=== PATIENT | male | born 2005 | race Caucasian/White ===

== ENCOUNTER → 2024-04-06 10:52 | Outpatient (REF) | payer BC, SELFPAY ==
[2024-04-06 12:14] LABS: % Basophils 0.3 % (0-2); % Eosinophils 8.4 % (0-6); % Immature Granulocytes 0.2 % (0-0.5); % Lymphocytes 30.7 % (20.5-51.1); % Monocytes 6.2 % (1.7-9.3); % Neutrophils 54.2 % (42.2-75.2); Absolute Eosinophils 0.6 10^3/uL (0-0.7); Absolute Monocytes 0.4 10^3/uL (0.1-0.6); Absolute Neutrophils 3.6 10^3/uL (1.4-6.5); Hematocrit 47.2 % (39.0-52.0); Hemoglobin 16.9 g/dL (13.0-18.0); Mean Corp Hgb Conc. 35.8 g/dL (33.0-37.0); Mean Corpuscular Hgb 30.7 pg (27.0-31.0); Mean Corpuscular Volume 85.7 fL (80.0-94.0); Mean Platelet Volume 10.4 fL (7.4-10.4); Nucleated Red Blood Cells % 0 % (-); Platelet Count 233 10^3/uL (130-400); Red Blood Cell Count 5.51 10^6/uL (4.70-6.10); Red Cell Dist. Width 12.1 % (11.5-14.5); White Blood Cell Count 6.7 10^3/uL (4.8-10.8)
[2024-04-06 12:26] LABS: ALT (SGPT) 92 U/L (0-50); AST (SGOT) 276 U/L (17-59); Albumin 5.1 g/dl (3.5-5.0); Alkaline Phosphatase 64 U/L (38-126); Blood Urea Nitrogen 11 mg/dl (9-20); Calcium 10.2 mg/dl (8.4-10.2); Carbon Dioxide 28 mmol/L (22-30); Chloride 99 mmol/L (98-107); Glucose 99 mg/dl (70-99); HDL Cholesterol 65 mg/dl; LDL Cholesterol, Calculated 55 mg/dl; Potassium 5.5 mmol/L (3.5-5.1); Sodium 139 mmol/L (135-145); Total Bilirubin 0.5 mg/dl (0.2-1.3); Total Cholesterol 131 mg/dl (50-199); Triglyceride 55 mg/dl (10-149); Very Low Density Lipoprotein 11 mg/dl (0-30); eGFR > 60.00
[2024-04-06 13:46] LABS: Glycohemoglobin (HgbA1c) 4.8 % (4.0-5.6)
[2024-04-06 13:59] LABS: Prolactin 11.4 ng/ml (3.7-17.9); TSH Reflex To Free T4 1.15 uIU/ml (0.47-4.68)
[2024-04-07 06:13] LABS: % Free Testosterone 2.1 % (1.6-2.9); Free Testosterone 112 pg/mL (47-244); Sex Hormone Binding Globulin 27 nmol/L (17-56); Total Testosterone 530 ng/dL (300-1080)
[2024-04-07 17:01] LABS: Vitamin D 1,25 Dihydroxy 40.3 pg/mL (19.9-79.3)
== END ==
LOC: WDC 10:52
PROVIDERS: ATTENDING PHYSICIAN Physician Assistant Medical
DX: N62 Hypertrophy of breast (principal); Z00.00 Encounter for general adult medical examination without abnormal findings
CPT/HCPCS: 36415; 76642; 80053; 80061; 82652; 83002; 83036; 84146; 84270; 84402; 84403; 84443; 85025

== ENCOUNTER → 2024-04-16 10:50 | Outpatient (REF) | payer BC, SELFPAY ==
[2024-04-16 15:20] LABS: ALT (SGPT) 37 U/L (0-50); AST (SGOT) 30 U/L (17-59); Alkaline Phosphatase 72 U/L (38-126); Blood Urea Nitrogen 13 mg/dl (9-20); Calcium 9.8 mg/dl (8.4-10.2); Carbon Dioxide 29 mmol/L (22-30); Chloride 98 mmol/L (98-107); GGTP 15 U/L (15-73); Glucose 92 mg/dl (70-99); Potassium 4.9 mmol/L (3.5-5.1); Sodium 139 mmol/L (135-145); Total Bilirubin 0.4 mg/dl (0.2-1.3); Total Protein 8.2 g/dl (6.3-8.2); eGFR > 60.00
[2024-04-16 18:57] LABS: Hepatitis B Surface Antigen Negative (Negative)
[2024-04-16 19:14] LABS: Hepatitis A Antibody, Total Positive (Negative); Hepatitis B Surface Antibody Negative; Hepatitis C Antibody Negative (Negative)
[2024-04-16 20:12] LABS: Hepatitis B Core Ab, IgM Negative (Negative)
[2024-04-19 00:17] LABS: F-Actin Antibody IgG 9 Units (0-19); Mitochondrial M2 Ab, IgG 9.8 Units (0.0-24.9)
== END ==
LOC: HWRAD 10:50
PROVIDERS: ATTENDING PHYSICIAN Physician Assistant Medical
DX: R74.8 Abnormal levels of other serum enzymes (principal); E87.5 Hyperkalemia
CPT/HCPCS: 36415; 76700; 80053; 82977; 86015; 86381; 86705; 86706; 86708; 86803; 87340

== ENCOUNTER → 2024-06-18 14:05 | Outpatient (REF) | payer BC, SELFPAY | LOC: RCS 14:05 | PROVIDERS: ATTENDING PHYSICIAN Surgery Plastic and Reconstructive Surgery; FAMILY PHYSICIAN Physician Assistant Medical | DX: Z01.818 Encounter for other preprocedural examination (principal) | CPT/HCPCS: 93005 ==

== ENCOUNTER 2024-08-22 06:32 | Day surgery (SDC) | payer BC, SELFPAY ==
[2024-08-22] VITALS (14 sets, daily range): BP systolic 120–144; BP diastolic 74–88; BMI 25.2
[2024-08-22] MEDS: NORMOSOL-R/PLASMALYTE-A 1000 IV (08:33)
[2024-08-22] MEDS: ADENOCARD 6 MG IV (13:35)
[2024-08-22] MEDS: ADENOCARD 12 MG IV (13:45)
[2024-08-22] MEDS: LOPRESSOR 5 MG IV (13:51)
--- NOTE | 2024-08-22 14:15 | SUR.PHASEI ---
PACU Note: Pt. arrived to PACU on monitor Sinus Tach with notable P-waves with rates in 110-120. Pt. HR progressed to the 130-150s without improvement with fluids. Pt. BP remained 130-140 systolically and afebrile (98.9 F). MD Polanco and Macario
made aware. 12-lead EKG completed. Instructed patient to Vagal down and HR did not improve. MD Polanco request to administer 6mg Adenosine. @1335 6mg Adenosine administered with 12-lead EKG on and defibrillator pads on patient. No improvement in HR
and HR remained in 150s-160s throughout administration. MD Polanco request to give 12mg. @1345 12mg of Adenosine given following same procedure (12-Lead EKG, defibrillator pads on), No change in HR and remained in rates of 140-150s. Collin request to
give 5mg Metoprolol and monitor for 30 minutes post administration. @1351 5mg Lopressor administered and pt. HR steadily came down to rates of 100-110 BPM. Pt. blood pressure and SaO2 remained stable throughout event and pt. denies any symptoms
related to procedure, anesthesia, or adenosine/ Lopressor administration. Pt. denies any pain throughout event and on arrival to PACU. @1421: Pt. HR still resting in rates of 100-110 BPM, pt. starting to endorse slight discomfort in the surgical
site at this time otherwise resting comfortably. MD Polanco okay with patient continuing on plan of discharge pending the okay from MD medley.
[2024-08-22] MEDS: DILAUDID 0.25 MG IV (14:35)
--- NOTE | 2024-08-22 15:17 | W.IMMPOSTOP ---
Surgical Immed Post Op Note
-
Primary Surgeon: ARSH Villa MD
Assisting Surgeon:
Pre-op Diagnosis: Gynecomastia
Post-op Diagnosis: Same
Procedure Performed: Direct excision of bilateral breast tissue, suction assisted lipectomy trunk
Anesthesia Type: General
Specimen / Cultures: Right and left breast tissue
Estimated Blood Loss: 30 cc
Complications: None
Operative Findings: As expected
--- NOTE | 2024-08-22 15:17 | OR.RPT ---
Operative Report
Operative Report
Date of surgery: 08/22/2024
Surgeon: ARSH Villa MD
Preoperative diagnosis: Gynecomastia, grade 3/4
Postoperative diagnosis: Same
Procedure:
1. Suction assisted lipectomy of trunk
2. Direct excision (mastectomy) of bilateral breast tissue via periareolar incision
Complications: None
Anesthesia: General
Specimens: Left and right breast tissue
EBL: 30 cc
Indications for procedure: Patient is a 19-year-old male with grade 3/4 gynecomastia that is been present since adolescence. He underwent full testicular exam and hormonal workup which was negative. He presented for discussion of correction of his
gynecomastia. A long conversation was had about the various treatment options including liposuction, direct excision, and double incision mastectomy. He wanted to avoid the scar burden of a formal skin excision. As such a plan was made for
combination of direct excision via periareolar incision paired with liposuction to the trunk to contour. He understood that skin abnormalities, redundancies may exist if the skin was not formally excised. He was accepting of these risks. He
preferred this to the long scar along the inframammary fold. Risk of the procedure including nipple loss, fat necrosis, sensory changes, hematoma, seroma abnormal scarring were reviewed at length. He consented accordingly
Procedure in detail: Patient was identified preoperatively and the surgical site was confirmed to be the bilateral breast. The extent of the glandular breast tissue was marked out as well as the normal pectoral anatomy for contouring. Of note the
breast tissue extended far beyond the margin of the areola. All questions were answered and consents were confirmed. Patient was taken back to the operating room placed supine on table. Anesthesia was induced and the patient was prepped and
draped in the usual sterile fashion using ChloraPrep. A timeout for patient safety was performed was confirmed that preoperative antibiotics have been administered and bilateral SCDs were in place. The procedure began with the injection of
tumescent solution consisting of dilute lidocaine with epinephrine. Total of 1 L was distributed over each chest wall. This was administered through a series of poke holes with a 15 blade. An appropriate amount of time was waited and separation
was performed off aspiration with a 4 mm cannula. After this, suction assisted lipectomy of the left breast and chest was performed first. Total of 1 L of light breast port was removed from the left chest wall. An inferior periareolar incision
was then made with a 15 blade and Bovie electrocautery was used to excise the fibroglandular tissue of the breast. This was sent to pathology. Meticulous hemostasis was ensured and a Marcaine block was performed and the pectoralis intercostal
fascia. A 15 Sudanese Godwin drain was tunneled through one of the access sites and sutured in place with a 2-0 Prolene. The wounds were then closed in layers with 3-0 and 4-0 Monocryl. 5-0 fast was used superficially at the access sites. Attention
was then drawn to the right breast where the exact same procedure was performed. Separation off suction was followed by lipo aspiration with a total volume of approximately 800 cc. As such direct excision commenced via periareolar incision. A
larger specimen was taken on this side likely due to the smaller volume of Lipo aspirate. Meticulous hemostasis was ensured Marcaine blocks were performed. A drain was left and sutured in place. Wounds were closed with 3-0 and 4-0 Monocryl and
5-0 fast superficially. Patient tolerated the procedure well and was performed out complication. All counts were correct at the end the case. He was extubated and taken the PACU for further care.
--- NOTE | 2024-08-22 16:57 | W.PN.UPDATE ---
Update Note
Progress Note Update
Plastic surgery update note
I was called to the bedside in the PACU for elevated heart rate in the 140s. Patient was alert and interactive, blood pressure was normal. Surgical sites and drains were appropriate. After discussion there was some concern for SVT. Anesthesia
commenced with trial of adenosine without success. Patient tolerated well. Trial of metoprolol was performed and this was sufficient and getting rate control. My anesthesia colleagues cleared him for safe discharge. I spoke to the patient and
his mother. Will follow closely. At the time of discharge, he was doing remarkably well without any complaints.
== END 2024-08-22 16:05 | disposition home or self-care (01) ==
LOC: SDS 06:32
PROVIDERS: ATTENDING PHYSICIAN Surgery Plastic and Reconstructive Surgery
DX: N62 Hypertrophy of breast (principal); R00.0 Tachycardia, unspecified
CPT/HCPCS: 19300; 15877; 88305; 93005; C1729; J0153